=== PATIENT | male | born 1935 | race Caucasian/White ===

== ENCOUNTER → 2016-05-17 | Outpatient (CLI) | payer MEDICARE, BC ==
--- NOTE | 2016-05-17 15:54 | REP ---
LEFT KNEE, FIVE VIEWS: HISTORY: Pain. There is no acute fracture or dislocation. There is narrowing of the joint spaces with associated osteophyte formation. IMPRESSION: Degenerative change as described above. Signed by Paul Huntley MD 05/17/2016 04:07 P
== END ==
LOC: M WUC 14:47
PROVIDERS: ATTEND Nurse Practitioner Family
DX: M25.562 Pain in left knee (principal); M17.12 Unilateral primary osteoarthritis, left knee

== ENCOUNTER → 2016-06-17 | Outpatient (CLI) | payer MEDICARE ==
--- NOTE | 2016-06-19 08:32 | REP ---
MRI LEFT KNEE WITHOUT CONTRAST: 06/17/2016. Comparison: X-ray 05/17/2016. Clinical history: Pain and swelling left knee with degenerative change. Technique: Sagittal PD, T2 STIR and gradient echo images, coronal PD and fat suppressed PD sequences and an axial PD fat suppressed sequence. Findings: Both ACL and PCL were grossly intact without a tear. There is transverse meniscal ligament of Frank anterior to the PCL and ligament of Wrisberg posterior to the PCL. Fluid in the intercondylar notch noted. The medial meniscus shows oblique grade 3 signal posterior horn communicating to the inferior articular surface fairly broadly suggesting degenerative type meniscal tear. There is abnormal signal throughout the anterior and posterior horns of medial meniscus with vertically oriented signal in the anterior horn communicating to the inferior articular surface. I do not see a displaced fragment or loose body in the medial compartment. There is chondromalacia grade 2-3. The medial femoral condyle grade 2 tibial plateau. There is a trace amount of fluid about the medial head of the gastrocnemius in the popliteal fossa. Medial collateral ligamentous complex intact. The medial patellar retinaculum slightly bowed by fluid in bursal recess deep to the medial femoral condyle. No definite tear of that ligament. There is some edema at its inferior insertion of the patella. The lateral meniscus shows horizontal grade 3 signal in the anterior horn and oblique grade 3 signal in the posterior horn representing a complex tear. I do not see loose body or meniscal fragment in the medial aspect of the lateral compartment. The lateral compartment shows grade 2-3 chondromalacia. No bone bruise or fracture of the femoral condyles or tibial plateau. Lateral collateral ligamentous complex and patellar retinaculum grossly intact. Suprapatellar effusion with a medial suprapatellar plica noted. There is chondromalacia grade 2 laterally, grade 1 to 2 medially. The extensor mechanism and patellar quadriceps tendons are intact. Impression: 1. ACL and PCL grossly intact. 2. Complex signal pattern tears in the menisci anterior and posterior horns of the medial and lateral menisci, likely in large part degenerative type tears but abnormal signal communicating to the articular surfaces of both horns of both menisci. No definite loose body or bucket-handle tear. 3. 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 4. Extensor mechanism, collateral ligamentous complexes, patellar retinacula all intact. 5. Popliteus tendon and the proximal tibiofibular articulation intact. Signed by Richard Givens MD 06/19/2016 05:13 P
== END ==
LOC: M RAD 10:09
PROVIDERS: ATTEND Nurse Practitioner Family
DX: M25.562 Pain in left knee (principal); M23.312 Other meniscus derangements, anterior horn of medial meniscus, left knee; M23.322 Other meniscus derangements, posterior horn of medial meniscus, left knee; M17.12 Unilateral primary osteoarthritis, left knee

== ENCOUNTER → 2016-10-05 | Outpatient (CLI) | payer MEDICARE ==
[2016-10-05 13:45] LABS: MEAN CORPUSCULAR HEMOGLOBIN 29.2 pg (27.0-33.0); MEAN CORPUSCULAR HGB CONC 33.5 g/dl (32.0-36.5); MEAN CORPUSCULAR VOLUME 87.4 fl (80.0-96.0); RED CELL DISTRIBUTION WIDTH 13.3 % (11.5-14.5); WHITE BLOOD COUNT 6.2 K/mm3 (4.0-10.0)
[2016-10-05 14:12] LABS: ALT/SGPT 21 U/L (12-78); ANION GAP 2 MEQ/L (8-16); AST/SGOT 14 U/L (15-37); BLOOD UREA NITROGEN 18 MG/DL (7-18); CALCIUM LEVEL 9.2 MG/DL (8.8-10.2); CARBON DIOXIDE LEVEL 35 MEQ/L (21-32); CHLORIDE LEVEL 105 MEQ/L (98-107); CREATININE FOR GFR 0.99 MG/DL (0.70-1.30); GLOMERULAR FILTRATION RATE > 60.0 (>35); GLUCOSE, FASTING 101 MG/DL (83-110); POTASSIUM SERUM 4.4 MEQ/L (3.5-5.1); SODIUM LEVEL 142 MEQ/L (136-145)
[2016-10-05 14:13] LABS: ALBUMIN 3.5 GM/DL (3.2-5.2); ALBUMIN/GLOBULIN RATIO 1.09 (1.00-1.93); ALKALINE PHOSPHATASE 57 U/L (45-117); BILIRUBIN,TOTAL 0.8 MG/DL (0.2-1.0); CHOLESTEROL LEVEL 134 MG/DL (<200); TOTAL PROTEIN 6.7 GM/DL (6.4-8.2); TRIGLYCERIDES LEVEL 67 MG/DL (<150)
== END ==
LOC: M WUC 09:33
PROVIDERS: ATTEND Nurse Practitioner Family
DX: I10 Essential (primary) hypertension (principal); E78.00 Pure hypercholesterolemia, unspecified

== ENCOUNTER → 2017-03-29 | Outpatient (CLI) | payer MEDICARE ==
[2017-03-29 12:58] LABS: MEAN CORPUSCULAR HEMOGLOBIN 28.5 pg (27.0-33.0); MEAN CORPUSCULAR HGB CONC 33.1 g/dl (32.0-36.5); MEAN CORPUSCULAR VOLUME 86.2 fl (80.0-96.0); PLATELET COUNT, AUTOMATED 161 10^3/uL (150-450); RED CELL DISTRIBUTION WIDTH 13.5 % (11.5-14.5); WHITE BLOOD COUNT 6.9 10^3/uL (4.0-10.0)
[2017-03-29 13:29] LABS: ALBUMIN 3.4 GM/DL (3.2-5.2); ALBUMIN/GLOBULIN RATIO 0.94 (1.00-1.93); ALKALINE PHOSPHATASE 62 U/L (45-117); ALT/SGPT 22 U/L (12-78); ANION GAP 5 MEQ/L (8-16); AST/SGOT 11 U/L (7-37); BILIRUBIN,TOTAL 0.7 MG/DL (0.2-1.0); BLOOD UREA NITROGEN 21 MG/DL (7-18); CALCIUM LEVEL 9.1 MG/DL (8.8-10.2); CARBON DIOXIDE LEVEL 32 MEQ/L (21-32); CHLORIDE LEVEL 105 MEQ/L (98-107); CHOLESTEROL LEVEL 151 MG/DL (<200); CREATININE FOR GFR 0.93 MG/DL (0.70-1.30); GLOMERULAR FILTRATION RATE > 60.0 (>35); GLUCOSE, FASTING 101 MG/DL (83-110); POTASSIUM SERUM 4.1 MEQ/L (3.5-5.1); SODIUM LEVEL 142 MEQ/L (136-145); TRIGLYCERIDES LEVEL 67 MG/DL (<150)
== END ==
LOC: M WUC 09:45
PROVIDERS: ATTEND Nurse Practitioner Adult Health
DX: I10 Essential (primary) hypertension (principal); E78.5 Hyperlipidemia, unspecified; D53.9 Nutritional anemia, unspecified; Z93.3 Colostomy status; Z79.899 Other long term (current) drug therapy

== ENCOUNTER → 2017-10-22 | Outpatient (CLI) | payer MEDICARE | LOC: M WUC 12:31 | DX: B99.9 Unspecified infectious disease (principal); Z98.890 Other specified postprocedural states | CPT/HCPCS: 74018 ==

== ENCOUNTER → 2018-06-18 | Outpatient (CLI) | payer MEDICARE ==
[2018-06-18 13:08] LABS: BASO % 0.6 % (0.0-1.0); EOS # 0.2 10^3/uL (0.0-0.50); EOS % 3.1 % (0.0-3.0); HEMATOCRIT 42.4 % (42.0-52.0); HEMOGLOBIN 13.8 g/dl (13.5-17.5); LYMPH % 16.2 % (24.0-44.0); MEAN CORPUSCULAR HEMOGLOBIN 28.3 pg (27.0-33.0); MEAN CORPUSCULAR HGB CONC 32.5 g/dl (32.0-36.5); MEAN CORPUSCULAR VOLUME 86.9 fl (80.0-96.0); MONO # 0.4 10^3/uL (0.0-0.8); MONO % 6.7 % (0.0-5.0); NEUTROPHILS # 4.7 10^3/uL (1.8-7.7); NEUTROPHILS % 73.1 % (36.0-66.0); PLATELET COUNT, AUTOMATED 174 10^3/uL (150-450); RED BLOOD COUNT 4.88 10^6/uL (4.30-6.10); WHITE BLOOD COUNT 6.4 10^3/uL (4.0-10.0)
[2018-06-18 14:02] LABS: HEMOGLOBIN A1c 6.5 %
[2018-06-18 14:24] LABS: ALBUMIN 3.5 GM/DL (3.2-5.2); ALT/SGPT 19 U/L (12-78); BILIRUBIN,TOTAL 0.9 MG/DL (0.2-1.0); BLOOD UREA NITROGEN 20 MG/DL (7-18); CALCIUM LEVEL 9.2 MG/DL (8.8-10.2); CARBON DIOXIDE LEVEL 30 MEQ/L (21-32); CHLORIDE LEVEL 102 MEQ/L (98-107); CHOLESTEROL LEVEL 152 MG/DL (<200); CREATININE FOR GFR 0.97 MG/DL (0.70-1.30); FREE T4 1.08 NG/DL (0.76-1.46); GLOMERULAR FILTRATION RATE > 60.0 (>35); GLUCOSE, FASTING 111 MG/DL (70-100); HDL CHOLESTEROL 51 MG/DL (>40); LDL CHOLESTEROL 85 MG/DL (<100); NON-HDL-C 101 MG/DL; POTASSIUM SERUM 4.2 MEQ/L (3.5-5.1); SODIUM LEVEL 140 MEQ/L (136-145); TOTAL 25(OH) VITAMIN D 25.4 NG/ML (30.0-100.0); TOTAL PROTEIN 7.2 GM/DL (6.4-8.2); TRIGLYCERIDES LEVEL 79 MG/DL (<150)
== END ==
LOC: M WUC 09:23
PROVIDERS: ATTEND Physician Assistant Medical
DX: R53.83 Other fatigue (principal); E78.2 Mixed hyperlipidemia; I10 Essential (primary) hypertension; E55.9 Vitamin D deficiency, unspecified; E11.9 Type 2 diabetes mellitus without complications

== ENCOUNTER 2019-07-29 11:31 | Inpatient (IN) | payer MEDICARE ==
[~2019-07-29] VITALS: Ht 188 cm; Wt 112.7 kg
[2019-07-29] MEDS ORDERED: LOSA100T50 PO (11:41)
[2019-07-29] MEDS ORDERED: CENTRUM VITAMIN (11:41)
[2019-07-29] MEDS ORDERED: ONDANSETRON 4MG/2ML VIAL (J2405) IV ONE (12:15)
[2019-07-29] MEDS ORDERED: NS 1,000 ML IV ONE (12:15)
[2019-07-29] MEDS ORDERED: MORPHINE 2 MG/ML 1ML VIAL (J2270) IV PRN (12:15)
[2019-07-29 12:43] LABS: BASO % 0.2 % (0.0-1.0); HEMATOCRIT 53.1 % (42.0-52.0); HEMOGLOBIN 16.9 g/dl (13.5-17.5); LYMPH # 0.3 10^3/uL (1.5-5.0); LYMPH % 2.4 % (24.0-44.0); MEAN CORPUSCULAR HEMOGLOBIN 28.2 pg (27.0-33.0); MEAN CORPUSCULAR HGB CONC 31.8 g/dl (32.0-36.5); MEAN CORPUSCULAR VOLUME 88.5 fl (80.0-96.0); MONO # 0.6 10^3/uL (0.0-0.8); MONO % 4.1 % (0.0-5.0); NEUTROPHILS # 12.4 10^3/uL (1.5-8.5); NEUTROPHILS % 92.7 % (36.0-66.0); PLATELET COUNT, AUTOMATED 200 10^3/uL (150-450); WHITE BLOOD COUNT 13.4 10^3/uL (4.0-10.0)
[2019-07-29 12:48] LABS: INR 1.21
[2019-07-29 12:49] LABS: ALBUMIN 3.7 GM/DL (3.2-5.2); ALT/SGPT 20 U/L (12-78); BILIRUBIN,DIRECT 0.3 MG/DL (0.0-0.2); CK-MB VALUE MASS 1.3 NG/ML (<3.6); CPK CREATINE PHOSPHOKINASE 44 U/L (39-308); LIPASE 146 U/L (73-393); MB/CK RELATIVE INDEX 2.95 (< OR =4); PARTIAL THROMBOPLASTIN TIME 25.5 SECONDS (25.0-38.4); TOTAL PROTEIN 7.9 GM/DL (6.4-8.2); TROPONIN I < 0.02 NG/ML (< 0.10)
[2019-07-29] MEDS ORDERED: ISOVUE-370 76% 100ML VIAL (Q9967) As Ordered ONE (13:00)
--- NOTE | 2019-07-29 14:35 | REP ---
REASON FOR EXAM: Acute abdominal pain. COMPARISON CT: None. CONTRAST: 100 mL Isovue 370. The lung bases are clear. The liver and spleen are within normal limits. Although according to the patient's history sheet filled out by the biomedical engineering technologist, the patient is not status post cholecystectomy, however, the gallbladder is not present or it is markedly contracted. There is marked pancreatic fatty infiltration. The right kidney and right adrenal gland are unremarkable. There is left adrenal gland thickening. In the interpolar region of the left kidney, there is a round 3.9 cm sized low density structure which has water density Hounsfield unit readings and shows no evidence of septations or enhancement. The abdominal aorta and para-aortic regions are within normal limits. There are multiple dilated and fluid-filled small bowel loops in the abdomen, particularly in the right abdomen and right upper quadrant. The small bowel loops seen in the right upper quadrant also have thickened hauser, which are enhancing and are seen in conjunction with a small amount of fluid trapped in their small bowel mesenteric leaves. There is no evidence of complete intestinal obstruction at this time. The patient does have a left-sided colostomy. There is gastric distention with fluid-filling the stomach and fluid throughout the duodenum with the exception of the distal portion of the sweep. There is no free air in the abdomen. CT PELVIS: The small bowel loops deep within the pelvis are nondilated but are fluid-filled. There is no evidence of free fluid or air in the pelvis. There is no evidence of pelvic adenopathy. Bone window technique throughout the examination shows chronic spinal, hip, and sacroiliac joint degenerative changes. IMPRESSION: 1. Findings involving the small bowel, as described above, suggest acute enteritis. This is seen with a suspected small bowel ileus. There is no definite evidence of complete obstruction at this time, however, followup is recommended. 2. Left renal cyst. 3. Diffuse fatty infiltration of the pancreas suggesting diabetes mellitus. This needs clinical correlation . 4. Other findings as described above. Electronically Signed by Homer Huffman DO 07/29/2019 03:10 P
[2019-07-29] MEDS ORDERED: CETACAINE SPRAY 5GM TOP ONE (15:00)
[2019-07-29] MEDS ORDERED: MORPHINE 4 MG/ML 1ML VIAL/SYRINGE (J2270) IV PRN (16:00)
--- NOTE | 2019-07-29 16:02 | HPEPDOC ---
General Date of Admission Date of Service: Jul 29, 2019 Primary Care Physician: RALPH MAZARIEGOS Attending Physician: A Chief Complaint The patient is a 84-year-old male admitted with a reason for visit of Abdominal Pain. Source: Patient Exam Limitations: No limitations Timing/Duration: Day(s) (. 4-5 days) Severity: Moderate Associated Symptoms: Other (, anorexia) History of Present Illness This is a 84 years old white male with past medical history of colorectal carcinoma, status post colostomy, also history of hypertension, was in usual state of health since he started feeling pain in his epigastric area along with nausea and vomiting since 5 days and today when he went to see his provider. He felt some lumps and was unable to rule out blockage and incentive to ED for further workup. Patient also complaining of loss of appetite since last 4-5 days. Patient denies chest pain, shortness of breath, etc. Home Medications Miscellaneous Medications Losartan Potassium (Losartan Potassium) 100 Mg Tablet, (Reported) [Centrum Vitamin] , (Reported) Allergies Coded Allergies: No Known Allergies (Unverified , 07/29/19) Past Medical History Medical History Colorectal carcinoma, hypertension Surgical History Colostomy status post hand surgery Social History * Smoker: non-smoker Alcohol: Denies Drugs: denies A-FIB/CHADSVASC A-FIB History Current/History of A-Fib/PAF?: No Review of Systems Constitutional: Reports: Weakness, Other (and her exam) Eyes: Denies: Pain, Vision change, Conjunctivae inflammation, Eyelid inflammation, Redness, Other ENT: Denies: Head Aches, Ear Pain, Dysphagia, Sinus Congestion, Post Nasal Drip, Sore Throat, Epistaxis, Other Symptoms Skin: Denies: Rash, Lesions, Jaundice, Bruising, Itching, Dry, Breakdown, Nail Changes, Other Cardiovascular: Denies: Chest Pain, Palpitations, Orthopnea, Paroxysmal Noc. Dyspnea, Edema, Lt Headedness, Other Symptoms Gastrointestinal: Reports: Abdominal Pain Genitourinary: Denies: Dysuria, Frequency, Incontinence, Hematuria, Retention, Other Symptoms Hematologic: Denies: Bruising, Bleeding Excessively, Petecchia, Purpura, Enlarged Lymph Nodes, Other Hematologic Endocrine: Denies: Polydipsia, Polyphagia, Polyuria, Heat Intolerance, Cold Intolerance, Other Endocrine Sx Musculoskeletal: Denies: Neck Pain, Back Pain, Shoulder Pain, Arm Pain, Hand Pain, Leg Pain, Foot Pain, Joint Pain, Muscle Pain, Spasms, Other Symptoms Neurological: Denies: Weakness, Numbness, Incoordination, Change in speech, C onfusion, Seizures, Other Symptoms Psych: Denies: Mood Normal, Anxiety, Depression, Memory Issues, Thoughts of Self Harm, Anger, Thoughts of Harming Other, Other Psych Physical Examination General Exam: Positive: Alert, Cooperative Eye Exam: Positive: PERRLA, Conjunctiva & lids normal ENT Exam: Positive: Atraumatic, Mucous membr. moist/pink Neck Exam: Positive: Supple Chest Exam: Positive: Clear to auscultation, Normal air movement Heart Exam: Positive: Rate Normal, Normal S1, Normal S2 Extremity Exam: Positive: Normal pulses Skin Exam: Positive: Nl turgor and temperature Neuro Exam: Positive: Strength at 5/5 X4 ext, Cranial Nerves 3-12 NL Psych Exam: Positive: Mental status NL, Mood NL Vital Signs Vital Signs Date Time Temp Pulse Resp B/P (MAP) Pulse Ox O2 Delivery O2 Flow Rate FiO2 07/29/19 13:35 19 07/29/19 11:53 07/29/19 11:32 96.2 101 96 Room Air Laboratory Data Labs 24H Laboratory Tests 2 07/29/19 12:04: Immature Granulocyte % (Auto) 0.6, Neutrophils (%) (Auto) 92.7H, Lymphocytes (%) (Auto) 2.4L, Monocytes (%) (Auto) 4.1, Eosinophils (%) (Auto) 0.0, Basophils (%) (Auto) 0.2, Neutrophils # (Auto) 12.4H, Lymphocytes # (Auto) 0.3L, Monocytes # (Auto) 0.6, Eosinophils # (Auto) 0.0, Basophils # (Auto) 0.0, Nucleated Red Blood Cells % (auto) 0.0, Prothrombin Time 15.0H, Prothromb Time International Ratio 1.21, Activated Partial Thromboplast Time 25.5, Total Bilirubin 1.0, Direct Bilirubin 0.3H, Aspartate Amino Transf (AST/SGOT) 16, Alanine Aminotransferase (ALT/SGPT) 20, Alkaline Phosphatase 78, Total Creatine Kinase 44, Creatine Kinase MB 1.3, Creatine Kinase MB Relative Index 2.95, Troponin I < 0.02, Total Protein 7.9, Albumin 3.7, Albumin/Globulin Ratio 0.88L, Lipase 146 07/29/19 12:34: Lactic Acid Level 2.7*H 07/29/19 12:57: POC Glucose (Misc Panel) 164H, POC Sodium (Misc Panel) 143, POC Potassium (Misc Panel) 3.6, POC Chloride (Misc Panel) 99, POC Total CO2 (Misc Panel) 32.0H, POC Blood Urea Nitrogen (Misc Panel 37H, POC Ionized Calcium (Misc Panel) 4.7, POC Creatinine (Misc Panel) 1.3, POC Hematocrit (Misc Panel) 54.0H CBC/BMP Laboratory Tests 07/29/19 12:04 Microbiology Microbiology 07/29/19 Blood Culture, Received Pending 07/29/19 Blood Culture, Received Pending Problems (1) Abdominal pain Status: Acute Problem Text: 84 years old white male with past medical history of colorectal carcinoma, status post colostomy complaining of epigastric pains last 4-5 days along with vomiting and unable to eat or tolerate anything orally. Patient was seen by his provider who felt the lump on his one side of abdomen and sent to the ER. Suspecting a blockage. Patient had abdominal CT done which showed acute enteritis. Suspect small bowel ileus. Left renal cyst and diffuse fatty infiltration of pancreatitis Patient. WBC count 13.4, hemoglobin 16.9, hematocrit 53.1, platelets 200. Lactic acid 2.7, lipase 146. Electrolytes are within normal range. BUN 37, creatinine 1.3 , Abdominal pain, most likely secondary to possible small bowel obstruction versus ileus, small bowel enteritis, Admit patient to MedSurg floor Half-normal saline at 70 mL per hour Protonix 40 mg IV every 12 hours Morphine sulfate 4 mg IV every 4-6 hours when necessary for pain Zofran 4 mg IV every 4 hours when necessary for nausea, vomiting Flagyl 500 mg IV every 8 hours Cipro 200 mg IV every 12 hours NG tube was inserted in ED and will maintain with gravity suction Nothing by mouth except ice chips Activity as tolerated DVT prophylaxis with bilateral SCDs Surgical consult with was called from ED and will see patient today Hold all by mouth meds (2) Enteritis Status: Acute Problem Specific Plan: Consult Specialist Problem Text: As above (3) Colorectal carcinoma Status: Chronic Problem Text: History of colorectal carcinoma, status post colostomy Further recommendation as per surgery (4) HTN (hypertension) Status: Chronic Problem Text: Hold by mouth meds Le[place]itt start IV antihypertensive if needed Plan / VTE VTE Prophylaxis Ordered?: Yes SUSAN HAYS MD Jul 29, 2019 16:02
[2019-07-29] MEDS: metroNIDAZOLE 500 MG in IV 1 EA IV SCH (16:13)
[2019-07-29] MEDS: NS 0.45% 1,000 ML IV SCH (16:13)
[2019-07-29] MEDS ORDERED: CENT1TAB2 PO (16:32)
[2019-07-29 17:05] VITALS: BP 140/77
--- NOTE | 2019-07-29 17:47 | CR.PDOC ---
General Surgery Consultation Date of Consultation 07/29/19 History and Physical CONSULT REPORT FOR: hospitalist service REASON FOR CONSULTATION: abdominal pain, possible bowel obstruction, parastomal hernia HISTORY OF PRESENT ILLNESS: Patient is an 84 M with a long standing colostomy following rectal cancer surgery (1997). He tells me he had the full treatment which usually includes radiation and chemotherapy. We have no record of the e xtent of his treatment. He reports he has never had a problem with his colostomy up until a week ago. Last week he was having some loose stools from the ostomy, this stopped roughly five days ago, he started having some epigastric discomfort then and reports one episode of vomiting. His ostomy output also started to decrease. He reports no output for about 3 days now. He started feeling nauseated. He went to his primary care provider who noted what most likely was a parastomal hernia and he was instructed to go to the emergency room. He denies fevers, chills, sick contacts. He did not notice the hernia himself. His discomfort is more on the right lower quadrant and epigastric area. In the ER, he was evaluated and imaging was suggestive of enteritis. The parastomal hernia was also visualized. I was then asked to consult on the patient. PAST MEDICAL HISTORY: 1. rectal cancer. s/p what looks like APR chemoradiation 2. hypertension. PAST SURGICAL HISTORY: INCLUDES: 1. Patient looks to have had an abdominoperineal resection for the rectal cancer 2. Hand surgery 3. Bilateral cataract surgery ALLERGIES: Please see below. HOME MEDICATIONS: Please see below. REVIEW OF SYSTEMS: GENERAL: No fevers chills, abnormal ongoing weight loss reported. HEENT: Patient reports hard of hearing. NECK: Denies any neck pain CARDIOVASCULAR: Denies chest pain and palpitations. MUSCULOSKELETAL: Denies arthralgias, back pain and thrombophlebitis. SKIN: Denies rash. NEUROLOGIC: Denies headache, stroke and transient ischemic attack. PSYCHIATRIC: Denies anxiety and depression. HEMATOLOGY/ONCOLOGY: Denies bleeding or clotting disorder. HEART: Denies any chest pains, palpitations, paroxysmal dyspnea, orthopnea. PULMONARY: Denies chronic cough, dyspnea and wheezing. GASTROINTESTINAL: As mentioned in HPI this is significant history for rectal cancer treated with surgery, chemoradiation. Last reported colonoscopy was several years ago. GENITOURINARY: Denies dysuria, frequency, hematuria and nocturia. ENDOCRINE: Denies polydipsia, polyphagia, polyuria, heat or cold intolerance. INFECTIOUS: Denies any recent upper respiratory tract infection, UTI, need for use of antibiotics. NUTRITION: Reports associated poor appetite from the abdominal distention. PHYSICAL EXAMINATION: VITALS SIGNS: Please see below. GENERAL APPEARANCE: Patient seen laying in bed reports he is feeling better after the nasogastric tube was been placed. SKIN: Warm and dry. HEENT: He has a nasogastric tube in place over the right nostril and this looks to be draining thick yellowish material reportedly drained 800 mL's in the emergency room and placement. NECK: Supple, no thyromegaly. No obvious jugular venous distention. LUNGS: Clear to auscultation bilaterally. No wheezing appreciated. HEART: No chest wall abnormalities. Regular rate and rhythm with no murmurs appreciated. ABDOMEN: Abdomen is mildly distended, tympanitic to percussion, quiet abdomen. LLQ ostomy without any output. The abdominal wall is protruding out more around the ostomy consistent with a parastomal hernia. The hernia site seems soft and seems to be partially reducible. He is somewhat tender around the ostomy with manipulation but also has some tenderness on deep palpation at the RLQ, periumbilical area. EXTREMITIES: Extremities have no deformities. No edema identified RUE lipoma noted ANCILLARIES: . LABORATORY DATA: Please see below. IMAGING STUDIES: CT abdomen and pelvis 1. Findings involving the small bowel, as described above, suggest acute enteritis. This is seen with a suspected small bowel ileus. There is no defini te evidence of complete obstruction at this time, however, followup is recommended. 2. Left renal cyst. 3. Diffuse fatty infiltration of the pancreas suggesting diabetes mellitus. This needs clinical correlation . 4. Other findings as described above. IMPRESSION AND PLAN: suspicious for bowel obstruction parastomal hernia The hernia itself does not seem to be the obstructing point as the bowels prior to going in the hernia is already normal to decompressed. I could not identify a n exact transition point at this time. This certainly is suspicious more of a mechanical bowel obstruction than enteritis as what the radiologist read on the CT scan was. He has an NGT in place and this is draining some thick enteric fluid. I will closely observe his course for now and see if he will resolve this obstruction with just the decompression and IVF hydration for support. If not resolved within 48 hrs, would do an SBFT to look for obstructing point and if there is would recommend surgical exploration . For now continue with conservative management. Vital Signs Vital Signs Date Time Temp Pulse Resp B/P (MAP) Pulse Ox O2 Delivery O2 Flow Rate FiO2 07/29/19 17:05 97.9 119 18 140/77 (98) 96 Room Air Laboratory Data Labs 24H Laboratory Tests 2 07/29/19 12:04: Immature Granulocyte % (Auto) 0.6, Neutrophils (%) (Auto) 92.7H, Lymphocytes (%) (Auto) 2.4L, Monocytes (%) (Auto) 4.1, Eosinophils (%) (Auto) 0.0, Basophils (%) (Auto) 0.2, Neutrophils # (Auto) 12.4H, Lymphocytes # (Auto) 0.3L, Monocytes # (Auto) 0.6, Eosinophils # (Auto) 0.0, Basophils # (Auto) 0.0, Nucleated Red Blood Cells % (auto) 0.0, Prothrombin Time 15.0H, Prothromb Time International Ratio 1.21, Activated Partial Thromboplast Time 25.5, Total Bilirubin 1.0, Direct Bilirubin 0.3H, Aspartate Amino Transf (AST/SGOT) 16, Alanine Aminotransferase (ALT/SGPT) 20, Alkaline Phosphatase 78, Total Creatine Kinase 44, Creatine Kinase MB 1.3, Creatine Kinase MB Relative Index 2.95, Troponin I < 0.02, Total Protein 7.9, Albumin 3.7, Albumin/Globulin Ratio 0.88L, Lipase 146 07/29/19 12:34: Lactic Acid Level 2.7*H 07/29/19 12:57: POC Glucose (Misc Panel) 164H, POC Sodium (Misc Panel) 143, POC Potassium (Misc Panel) 3.6, POC Chloride (Misc Panel) 99, POC Total CO2 (Misc Panel) 32.0H, POC Blood Urea Nitrogen (Misc Panel 37H, POC Ionized Calcium (Misc Panel) 4.7, POC Creatinine (Misc Panel) 1.3, POC Hematocrit (Misc Panel) 54.0H 07/29/19 17:17: CBC/BMP Laboratory Tests 07/29/19 12:04 Microbiology Microbiology 07/29/19 Blood Culture, Received Pending 07/29/19 Blood Culture, Received Pending Home Medications Scheduled Losartan Potassium (Losartan Potassium) 100 Mg Tablet, 100 MG PO DAILY, (Reported) Multivit-Mins/Iron/Folic/Lycop (Centrum Men's Tablet) 1 Each Tablet, 1 TAB PO DAILY, (Reported) Allergies Coded Allergies: No Known Allergies (Unverified , 07/29/19) ROSA LEON MD Jul 29, 2019 17:47
[2019-07-29] MEDS: CIPROFLOXACIN 200 MG in IV 1 EA IV SCH (18:33)
[2019-07-29 22:00] VITALS: BP 137/76
[2019-07-29] MEDS ORDERED: ACETAMINOPHEN TAB 650MG DOSE (2X325MG) NG PRN (22:00)
[2019-07-30] MEDS: metroNIDAZOLE 500 MG in IV 1 EA IV SCH ×3 (00:20→15:30)
--- NOTE | 2019-07-30 01:08 | ECGEPIP ---
[facility] - ED Test Date: 2019-07-29 Pat Name: SIENA MCNAIR Department: Room: 01[facility] Gender: Male Instrumentation Technician: Da ALDRIDGE : [id number] Requested By: SYED Jeff Order Number: [id number] Reading MD: Marcos Olson Measurements Intervals Rector Rate: 110 P: 60 NV: 159 QRS: -1 QRSD: 89 T: 72 QT: 324 QTc: 440 Interpretive Statements SINUS TACHYCARDIA WITH OCCASIONAL VENTRICULAR PREMATURE COMPLEXES WITH OCCASIONAL S SUPRAVENTRICULAR PREMATURE COMPLEXES NO PRIORS FOR COMPARISON Electronically Signed on 07-30-2019 1:08:29 EDT by Marcos Olson
[2019-07-30] MEDS: CIPROFLOXACIN 200 MG in IV 1 EA IV SCH ×2 (05:06→17:19)
[2019-07-30] MEDS: NS 0.45% 1,000 ML IV SCH ×2 (05:06→15:30)
[2019-07-30 05:48] LABS: HEMATOCRIT 52.1 % (42.0-52.0); HEMOGLOBIN 16.5 g/dl (13.5-17.5); MEAN CORPUSCULAR HEMOGLOBIN 27.8 pg (27.0-33.0); MEAN CORPUSCULAR HGB CONC 31.7 g/dl (32.0-36.5); MEAN CORPUSCULAR VOLUME 87.9 fl (80.0-96.0); PLATELET COUNT, AUTOMATED 180 10^3/uL (150-450); RED BLOOD COUNT 5.93 10^6/uL (4.30-6.10); WHITE BLOOD COUNT 14.4 10^3/uL (4.0-10.0)
[2019-07-30 06:00] VITALS: BP 104/68
[2019-07-30 06:20] LABS: ALBUMIN 2.7 GM/DL (3.2-5.2); CALCIUM LEVEL 9.1 MG/DL (8.8-10.2); CREATININE FOR GFR 2.5 MG/DL (0.70-1.30); GLOMERULAR FILTRATION RATE 26.2 (>35); TOTAL PROTEIN 7.2 GM/DL (6.4-8.2)
[2019-07-30 06:26] LABS: HEMOGLOBIN A1c 6.2 %
--- NOTE | 2019-07-30 09:41 | IPNPDOC ---
Subjective General Date/Time Seen The patient was seen on 07/30/19 at 08:26. Subject Chief Complaint/History The patient is a 84-year-old male admitted with a reason for visit of Abdominal Pain. Patient reports he feels mildly better. He drained 800 mLs from his nasogastric tube overnight. He is pointing to his right upper quadrant area where he hurts today. He feels better over the right lower quadrant and periumbilical area and likewise the parastomal area. He still has no output from his colostomy. Current Medications Current Medications Current Medications Medications (Trade) Dose Ordered Sig/Chel Route PRN Reason Start Time Stop Time Status Last Admin Dose Admin Acetaminophen (Tylenol Tab) 650 mg Q6HP PRN NG PAIN / FEVER 07/29/19 22:00 07/29/19 22:01 Ciprofloxacin 200 mg/IV Miscellaneous Supplies 100 ml @ 100 mls/hr Q12H IV 07/29/19 17:00 07/30/19 05:06 Home Med (Med Rec Complete!) ASDIRECTED XX 07/29/19 16:45 07/29/19 16:35 DC Metronidazole 500 mg/IV Miscellaneous Supplies 100 ml @ 100 mls/hr Q8H IV 07/29/19 16:00 07/30/19 00:20 Morphine Sulfate (Morphine Sulfate Inj) 2 mg Q30M PRN IV MODERATE PAIN (PS 5-7) 07/29/19 12:15 07/29/19 13:25 Morphine Sulfate (Morphine Sulfate Inj) 4 mg Q4HP PRN IV SEVERE PAIN (PS 8-10) 07/29/19 16:00 Ondansetron HCl (ZOFRAN INJection) 4 mg Q4HP PRN IV NAUSEA OR VOMITING 07/29/19 16:00 Sodium Chloride 1,000 ml @ 100 mls/hr Q10H IV 07/29/19 16:00 07/30/19 05:06 Allergies Coded Allergies: No Known Allergies (Unverified , 07/29/19) Objective Physical Examination Examination GENERAL APPEARANCE: Patient looks comfortable. SKIN: Warm and dry. HEENT: Nasogastric tube in place, noted to be working. The character of drainage is now mostly thin bilious fluid. NECK: Supple, no thyromegaly. No obvious jugular venous distention. LUNGS: Clear to auscultation bilaterally. No wheezing appreciated. HEART: No chest wall abnormalities. Regular rate and rhythm with no murmurs appreciated. ABDOMEN: Abdomen is appears less distended today, softer. Hypoactive bowel sounds. He has some mild tenderness on palpation over the right upper quadrant area slightly at the left upper quadrant area. He no longer has tenderness over the right lower quadrant, periumbilical and parastomal area. His stoma is healthy but no output either air or stool in the colostomy bag, soft. EXTREMITIES: No extremity edema. Vital Signs Vital Signs Date Time Temp Pulse Resp B/P (MAP) Pulse Ox O2 Delivery O2 Flow Rate FiO2 07/30/19 06:00 99.6 108 20 104/68 (80) 91 Room Air I&Os I&O- Last 24 Hours up to 6 AM 07/30/19 06:00 Intake Total 2310 ml Output Total 1180 ml Balance 1130 ml 900 mLs drained from NGT overnight Laboratory Data Labs 24H Laboratory Tests 2 07/29/19 12:04: Immature Granulocyte % (Auto) 0.6, Neutrophils (%) (Auto) 92.7H, Lymphocytes (%) (Auto) 2.4L, Monocytes (%) (Auto) 4.1, Eosinophils (%) (Auto) 0.0, Basophils (%) (Auto) 0.2, Neutrophils # (Auto) 12.4H, Lymphocytes # (Auto) 0.3L, Monocytes # (Auto) 0.6, Eosinophils # (Auto) 0.0, Basophils # (Auto) 0.0, Nucleated Red Blood Cells % (auto) 0.0, Prothrombin Time 15.0H, Prothromb Time International Ratio 1.21, Activated Partial Thromboplast Time 25.5, Total Bilirubin 1.0, Di rect Bilirubin 0.3H, Aspartate Amino Transf (AST/SGOT) 16, Alanine Aminotransferase (ALT/SGPT) 20, Alkaline Phosphatase 78, Total Creatine Kinase 44, Creatine Kinase MB 1.3, Creatine Kinase MB Relative Index 2.95, Troponin I < 0.02, Total Protein 7.9, Albumin 3.7, Albumin/Globulin Ratio 0.88L, Lipase 146 07/29/19 12:34: Lactic Acid Level 2.7*H 07/29/19 12:57: POC Glucose (Misc Panel) 164H, POC Sodium (Misc Panel) 143, POC Potassium (Misc Panel) 3.6, POC Chloride (Misc Panel) 99, POC Total CO2 (Misc Panel) 32.0H, POC Blood Urea Nitrogen (Misc Panel 37H, POC Ionized Calcium (Misc Panel) 4.7, POC Creatinine (Misc Panel) 1.3, POC Hematocrit (Misc Panel) 54.0H 07/29/19 17:17: Lactic Acid Followup at 4 Hours 2.9*H 07/30/19 05:26: Nucleated Red Blood Cells % (auto) 0.0, Anion Gap 6L, Glomerular Filtration Rate 26.2L, Estimated Mean Plasma Glucose 131H, Hemoglobin A1c 6.2, Lactic Acid Level 1.8, Calcium Level 9.1, Total Bilirubin 1.0, Aspartate Amino Transf (AST/SGOT) 10, Alanine Aminotransferase (ALT/SGPT) 18, Alkaline Phosphatase 59, Total Protein 7.2, Albumin 2.7#L, Albumin/Globulin Ratio 0.60L CBC/BMP Laboratory Tests 07/29/19 12:04 07/30/19 05:26 Microbiology Microbiology 07/29/19 Blood Culture, Received Pending 07/29/19 Blood Culture, Received Pending Impression h/o rectal cancer s/p resection and colostomy parastomal hernia bowel obstruction He continues to some mild leukocytosis as well as a febrile temperature last night. He has been started on Cipro and metronidazole. He still does not have any output on his colostomy despite him being decompressed now with a nasogastric tube suction. I still feel this is an obstruction and others of enteritis. I like to get a small bowel follow-through today to further evaluate the bowels look for areas of obstruction. Looking back on the CT done yesterday I'm suspecting the obstructing point is somewhat near the right upper quadrant area where he hurts. I will await the results of the small bowel follow-through. Continue present management including nasogastric tube decompression Plan / VTE VTE Prophylaxis Ordered?: Yes ROSA LEON MD Jul 30, 2019 08:27
[2019-07-30] MEDS ORDERED: ISOVUE-370 76% 100ML VIAL (Q9967) As Ordered ONE (09:56)
[2019-07-30] MEDS ORDERED: ISOVUE-300 61% 50ML VIAL (Q9967) As Ordered ONE (09:57)
--- NOTE | 2019-07-30 09:59 | IPNPDOC ---
Subjective Date Seen The patient was seen on 07/30/19. Subjective Chief Complaint/HPI Patient still has abdominal pain but has slightly decreased NG tube in place General: Denies: ROS Unobtainable, Chills, Night Sweats, Fatigue, Malaise, Normal Appetite, Other Symptoms Constitutional: Denies: Chills, Fever, Malaise, Night Sweats, Weakness, Fatigue, Weight Loss, Lethargy, Other Skin: Denies: Rash, Lesions, Jaundice, Bruising, Itching, Dry, Breakdown, Nail Changes, Other Pulmonary: Denies: Dyspnea, Cough, Pleuritic Chest Pain, Other Symptoms Cardiovascular: Denies: Chest Pain, Palpitations, Orthopnea, Paroxysmal Noc. Dyspnea, Edema, Lt Headedness, Other Symptoms Gastrointestinal: Denies: Nausea, Vomiting, Abdominal Pain, Diarrhea, Constipation, Melena, Hematochezia, Other Symptoms Musculoskeletal: Denies: Neck Pain, Back Pain, Shoulder Pain, Arm Pain, Hand Pain, Leg Pain, Foot Pain, Joint Pain, Muscle Pain, Spasms, Other Symptoms Neurological: Denies: Weakness, Numbness, Incoordination, Change in speech, Confusion, Seizures, Other Symptoms Objective Physical Examination General Exam: Positive: Alert, Cooperative, No Acute Distress, Mild Distress, Moderate Distress, Severe Distress, Other Chest Exam: Positive: Clear to auscultation, Normal air movement Heart Exam: Positive: Rate Normal, Normal S1, Normal S2 Abdomen Exam: Positive: BS Hypoactive, Tenderness (positive tenderness all over the abdomen) Extremity Exam: Positive: Normal pulses Skin Exam: Positive: Nl turgor and temperature Neuro Exam: Positive: Strength at 5/5 X4 ext, Cranial Nerves 3-12 NL Psych Exam: Positive: Mental status NL, Mood NL, Oriented x 3 Assessment /Plan Problems (1) Small bowel obstruction Status: Acute Problem Text: Discussed with Dr. Swanson Patient most likely has a small bowel obstruction . He is ordered small bowel follow-up series to determine transitional point Patient is being decompressed with NG tube possibly will need the surgical intervention if medically his SBO doesn't clear up Patient also was diagnosed with the small bowel enteritis by CAT scan, but does not agree with the findings Will continue IV antibiotics. In the meantime Repeat WBC count is 14.4, electrolytes are normal with BUN of 58, creatinine 2.5 Hemoglobin C is a 6.2, possible borderline diabetes mellitus, will start fingerstick blood sugar with the coverage Once patient is a ready to be discharged, then he will be placed on diabetic diet and follow with PCP for further management of his glucose tolerance Further recommendation as per surgery (2) Colorectal carcinoma Status: Chronic Problem Text: History of colorectal carcinoma in the past Observation (3) HTN (hypertension) Status: Chronic Problem Text: By mouth meds on hold secondary to his by mouth Will start IV meds if needed, but his blood pressure is under well control at present time Plan/VTE VTE Prophylaxis Ordered?: Yes VS, I&O, 24H, Fishbone Vital Signs/I&O Vital Signs Date Time Temp Pulse Resp B/P (MAP) Pulse Ox O2 Delivery O2 Flow Rate FiO2 07/30/19 06:00 99.6 108 20 104/68 (80) 91 Room Air I&O- Last 24 Hours up to 6 AM0 07/30/19 06:00 Intake Total 2310 ml Output Total 1180 ml Balance 1130 ml Laboratory Data 24H LABS Laboratory Tests 2 07/29/19 12:04: Immature Granulocyte % (Auto) 0.6, Neutrophils (%) (Auto) 92.7H, Lymphocytes (%) (Auto) 2.4L, Monocytes (%) (Auto) 4.1, Eosinophils (%) (Auto) 0.0, Basophils (%) (Auto) 0.2, Neutrophils # (Auto) 12.4H, Lymphocytes # (Auto) 0.3L, Monocytes # (Auto) 0.6, Eosinophils # (Auto) 0.0, Basophils # (Auto) 0.0, Nucleated Red Blood Cells % (auto) 0.0, Prothrombin Time 15.0H, Prothromb Time International Ratio 1.21, Activated Partial Thromboplast Time 25.5, Total Bilirubin 1.0, Direct Bilirubin 0.3H, Aspartate Amino Transf (AST/SGOT) 16, Alanine Aminotransferase (ALT/SGPT) 20, Alkaline Phosphatase 78, Total Creatine Kinase 44, Creatine Kinase MB 1.3, Creatine Kinase MB Relative Index 2.95, Troponin I < 0.02, Total Protein 7.9, Albumin 3.7, Albumin/Globulin Ratio 0.88L, Lipase 146 07/29/19 12:34: Lactic Acid Level 2.7*H 07/29/19 12:57: POC Glucose (Misc Panel) 164H, POC Sodium (Misc Panel) 143, POC Potassium (Misc Panel) 3.6, POC Chloride (Misc Panel) 99, POC Total CO2 (Misc Panel) 32.0H, POC Blood Urea Nitrogen (Misc Panel 37H, POC Ionized Calcium (Misc Panel) 4.7, POC Creatinine (Misc Panel) 1.3, POC Hematocrit (Misc Panel) 54.0H 07/29/19 17:17: Lactic Acid Followup at 4 Hours 2.9*H 07/30/19 05:26: Nucleated Red Blood Cells % (auto) 0.0, Anion Gap 6L, Glomerular Filtration Rate 26.2L, Estimated Mean Plasma Glucose 131H, Hemoglobin A1c 6.2, Lactic Acid Level 1.8, Calcium Level 9.1, Total Bilirubin 1.0, Aspartate Amino Transf (AST/SGOT) 10, Alanine Aminotransferase (ALT/SGPT) 18, Alkaline Phosphatase 59, Total Protein 7.2, Albumin 2.7#L, Albumin/Globulin Ratio 0.60L CBC/BMP Laboratory Tests 07/29/19 12:04 07/30/19 05:26 Microbiology Microbiology 07/29/19 Blood Culture, Received Pending 07/29/19 Blood Culture, Received Pending SUSAN HAYS MD Jul 30, 2019 09:59
[2019-07-30] MEDS ORDERED: GLUCOSE 4 GM CHEW TABLET PO PRN ×2 (10:00→20:00)
[2019-07-30] MEDS ORDERED: DEXTROSE 50% 50 ML SYRINGE IV PRN ×2 (10:00→20:00)
[2019-07-30] MEDS ORDERED: GLUCAGON FOR INJ 1 MG VIAL (J1610) SC PRN ×2 (10:00→20:00)
[2019-07-30] MEDS: HumaLOG INSULIN (NovoLOG) PER UNIT SC SCH ×2 (11:54→17:16)
[2019-07-30 14:30] VITALS: BP 106/67
--- NOTE | 2019-07-30 14:39 | ECGEPIP ---
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
[2019-07-30] MEDS: ONDANSETRON 4MG/2ML VIAL (J2405) IV PRN ×2 (15:30→22:00)
[2019-07-30] MEDS ORDERED: PROMETHAZINE INJ 25 MG/ML VIAL (J2550) IV PRN (15:30)
[2019-07-30] MEDS ORDERED: HumaLOG INSULIN (NovoLOG) PER UNIT SC SCH ×2 (20:00→21:00)
[2019-07-30 22:00] VITALS: BP 110/66
[2019-07-31] VITALS (10 sets, daily range): BP systolic 73–116; BP diastolic 42–81
[2019-07-31] MEDS ORDERED: HumaLOG INSULIN (NovoLOG) PER UNIT SC SCH
[2019-07-31] MEDS ORDERED: NOREPINEPHRINE 4 MG/4 ML AMP As Ordered ONE ×2 (00:31→00:33)
[2019-07-31] MEDS ORDERED: SUCCINYLCHOLINE INJ 200 MG/10 ML VIAL (J0330) As Ordered ONE (00:31)
[2019-07-31 00:53] LABS: ABG BASE EXCESS -4.2 (-2.0-2.0); ABG HCO3 23.6 MEQ/L (22.0-26.0); ABG O2 SATURATION 98.3 % (95.0-99.0); ABG PARTIAL PRESSURE CO2 53.6 mmHg (35.0-45.0); ABG PARTIAL PRESSURE O2 131.7 mmHg (75.0-100.0); ABG STANDARD HCO3 21.1 MEQ/L (22.0-26.0); ABG TOTAL CO2 25.3 MEQ/L (23.0-31.0); ABG pH (ARTERIAL) 7.262 UNITS (7.350-7.450)
[2019-07-31] MEDS ORDERED: MEROPENEM INJ 2 GM in NS 100 ML IV SCH ×2 (01:00→04:00)
[2019-07-31] MEDS ORDERED: VANCOMYCIN HCL 1,000 MG, VIAL MATE ADAPTER 1 EACH in D5W 250 ML IV SCH (01:00)
--- NOTE | 2019-07-31 01:02 | REPVR ---
PROCEDURE INFORMATION: Exam: XR Chest, 1 View Exam date and time: 07/31/2019 12:52 AM Age: 84 years old Clinical indication: Other: Pea arrest TECHNIQUE: Imaging protocol: XR of the chest Views: 1 view. COMPARISON: No relevant prior studies available. FINDINGS: Tubes, catheters and devices: Endotracheal tube lies 5 cm above the rossi. NG tube appears to extend into the stomach. Lungs: Degree of lung inflation is normal. No evidence of pulmonary edema. Ill-defined right perihilar airspace opacity. Pleural space: No pleural effusion or pneumothorax. Heart/Mediastinum: Cardiac silhouette appears normal. No adenopathy or hilar mass. Bones/joints: Osseous structures show no concerning abnormality. IMPRESSION: 1. Right perihilar airspace opacity which could represent pneumonia. No underlying active pulmonary edema. 2. Supportive devices are appropriately positioned. Electronically signed by: Carl Lou On 07/31/2019 01:02:10 AM
[2019-07-31] MEDS ORDERED: fentaNYL 100 MCG/2 ML INJECTION (J3010) As Ordered ONE (01:10)
[2019-07-31] MEDS ORDERED: VASOPRESSIN INJ 20 UNITS/ML VIAL As Ordered ONE (01:19)
[2019-07-31 01:29] LABS: INR 1.84
[2019-07-31] MEDS ORDERED: MIDAZOLAM INJ 2 MG/2 ML VIAL (J2250) IV PRN (01:30)
[2019-07-31] MEDS ORDERED: fentaNYL 100 MCG/2 ML INJECTION (J3010) IV ONE (01:30)
[2019-07-31] MEDS ORDERED: VASOPRESSIN INJ 20 UNITS in NS 499 ML IV SCH (01:30)
[2019-07-31] MEDS ORDERED: SODIUM BICARBONATE 8.4% INJ 50 ML SYRINGE As Ordered ONE (01:34)
[2019-07-31] MEDS ORDERED: SODIUM BICARBONATE 8.4% INJ 50 ML SYRINGE IV STA (01:37)
[2019-07-31 01:40] LABS: HEMATOCRIT 47.6 % (42.0-52.0); HEMOGLOBIN 14.9 g/dl (13.5-17.5); MEAN CORPUSCULAR HEMOGLOBIN 28.5 pg (27.0-33.0); MEAN CORPUSCULAR HGB CONC 31.3 g/dl (32.0-36.5); PLATELET COUNT, AUTOMATED 177 10^3/uL (150-450); RED BLOOD COUNT 5.23 10^6/uL (4.30-6.10); WHITE BLOOD COUNT 12.1 10^3/uL (4.0-10.0)
[2019-07-31] MEDS ORDERED: VANCOMYCIN HCL 1,000 MG, VIAL MATE ADAPTER 1 EACH in D5W 250 ML IV ONE (01:45)
[2019-07-31] MEDS ORDERED: NS 1,000 ML IV ONE ×2 (01:45)
[2019-07-31 02:00] LABS: LYMPHOCYTES 2 % (16-44); METAMYELOCYTES 2 % (0-0); MONOCYTES 2 % (0-5); MYELOCYTES 1 % (0-0); NEUTROPHILS 91 % (28-66); PLATELET ESTIMATE NORMAL (NORMAL)
[2019-07-31] MEDS ORDERED: NOREPINEPHRINE BITARTRATE 16 MG in D5W 484 ML IV SCH (02:00)
[2019-07-31] MEDS ORDERED: fentaNYL CITRATE 1,000 MCG in NS 80 ML IV SCH (02:00)
[2019-07-31 02:01] LABS: PLATELET CLUMPS SMALL AMT
[2019-07-31 02:13] LABS: ALBUMIN 2.3 GM/DL (3.2-5.2); BILIRUBIN,TOTAL 0.7 MG/DL (0.2-1.0); CALCIUM LEVEL 8.2 MG/DL (8.8-10.2); CK-MB VALUE MASS 6.9 NG/ML (<3.6); CREATININE FOR GFR 4.62 MG/DL (0.70-1.30); GLOMERULAR FILTRATION RATE 12.9 (>35); MAGNESIUM LEVEL 3.7 MG/DL (1.8-2.4); MB/CK RELATIVE INDEX 2.89 (< OR =4); PHOSPHORUS LEVEL 9.2 MG/DL (2.5-4.9); POTASSIUM SERUM 3.5 MEQ/L (3.5-5.1); TOTAL PROTEIN 5.5 GM/DL (6.4-8.2); TROPONIN I 0.13 NG/ML (< 0.10)
--- NOTE | 2019-07-31 02:37 | IPNPDOC ---
Date Seen The patient was seen on 07/31/19. Progress Note MAX CART NOTE Subjective: Max Cart called on patient at 0011. Patient reported to be in asystole at the time. High quality CPR was performed. Patient remained in asystole arrest for duration of code. Patient had copious amounts of vomit. NG tube was placed on suction with ~2L of output. Anaesthesia was present and patient was intubated at bedside. Patient received a total of three rounds of epinephrine and 2 ampules of bicarbonate. ROSC was obtained after ~10 minutes and patient was transferred to the Intensive Care Unit. Pulmonary/Critical Care on-call physician Dr. Bonilla was contacted and arrived to evaluate patient in the ICU. Central venous catheter was placed and patient was maxed out on Norepinephrine and Vasopressin. Patient has remained off of sedation without much response. Consider likely anoxic brain injury given hypoxia > 5 min given copious vomiting. Assessment/Plan: Cardiac Arrest / Asystole 2/2 gastric distention and Septic shock -Patient found to have distended stomach with >2L output from NG tube -Likely Septic shock -EKG demonstrating ST depressions and Atrial Fibrillation -STAT Echocardiogram -Hyperdynamic LV and RV function. No pericardial effusion. Mild aortic valve sclerosis. Probably mild pulmonary hypertension. Grade 1 LV diastolic dysfunction. CVP 5-10 -CVP of 5-10 suggesting need for additional IV fluid resuscitation and supporting likelihood of septic shock -Patient remains on Levophed and Vaso -Patients present at bedside and wishes to continue supportive measures at this time. The patient is currently DO NOT RESUSCITATE - MOLST form updated to reflect this -Vancomycin and Meropenem have been initiated and renally dosed -STAT labs demonstrating elevated lactic acid. Worsening renal function and transaminitis -Mild elevation of Troponin; will continue to trend Prognosis: Overall very poor prognosis given that likely suffered an anoxic brain injury during his arrest. - Will continue supportive care currently. - Patient is currently DNR / Patient currently maxed out on pressor support with down trending BP VS, I&O, 24H, Fishbone Vital Signs/I&O Vital Signs Date Time Temp Pulse Resp B/P (MAP) Pulse Ox O2 Delivery O2 Flow Rate FiO2 07/31/19 01:53 134 16 92 70 07/30/19 22:00 98.9 110/66 (81) Room Air I&O- Last 24 Hours up to 6 AM 07/31/19 06:00 Intake Total 1100 ml Output Total 90 ml Balance 1010 ml Laboratory Data 24H LABS Laboratory Tests 2 07/30/19 05:26: Nucleated Red Blood Cells % (auto) 0.0, Anion Gap 6L, Glomerular Filtration Rate 26.2L, Estimated Mean Plasma Glucose 131H, Hemoglobin A1c 6.2, Lactic Acid Level 1.8, Calcium Level 9.1, Total Bilirubin 1.0, Aspartate Amino Transf (AST/SGOT) 10, Alanine Aminotransferase (ALT/SGPT) 18, Alkaline Phosphatase 59, Total Protein 7.2, Albumin 2.7#L, Albumin/Globulin Ratio 0.60L 07/30/19 11:42: Bedside Glucose (Misc Panel) 136H 07/30/19 16:34: Bedside Glucose (Misc Panel) 134H 07/31/19 00:45: Blood Gas Bicarbonate Standard 21.1L, Arterial Blood pH 7.262L, Arterial Blood Partial Pressure CO2 53.6H, Arterial Blood Partial Pressure O2 131.7H, Arterial Blood Total CO2 25.3, Arterial Blood HCO3 23.6, Arterial Blood Base Excess - 4.2L, Arterial Blood Oxygen Saturation 98.3 07/31/19 01:04: Prothrombin Time 21.0H, Prothromb Time International Ratio 1.84, Lactic Acid Level 8.9*H 07/31/19 01:25: Neutrophils (%) (Auto) , Nucleated Red Blood Cells % (auto) 0.0, Neutrophils 91H, Band Neutrophils 2, Lymphocytes (Manual) 2L, Monocytes (Manual) 2, Metamyelocytes 2H, Myelocytes 1H, Platelet Estimate NORMAL, Clumped Platelets SMALL AMT, Anion Gap 18H, Glomerular Filtration Rate 12.9L, Calcium Level 8.2L, Phosphorus Level 9.2H, Magnesium Level 3.7H, Total Bilirubin 0.7, Aspartate Amino Transf (AST/SGOT) 274H, Alanine Aminotransferase (ALT/SGPT) 201H, Alkaline Phosphatase 57, Total Creatine Kinase 239#, Creatine Kinase MB 6.9H, Creatine Kinase MB Relative Index 2.89, Troponin I 0.13#H, Total Protein 5.5#L, Albumin 2.3L, Albumin/Globulin Ratio 0.72L 07/31/19 01:40: Bedside Glucose (Misc Panel) 109 CBC/BMP Laboratory Tests 07/30/19 05:26 07/31/19 01:25 Microbiology Microbiology 07/31/19 Blood Culture, Received Pending 07/31/19 Blood Culture, Received Pending 07/29/19 Blood Culture - Preliminary, Resulted No growth after 24 hours . All specim... 07/29/19 Blood Culture - Preliminary, Resulted No growth after 24 hours . All specim... GME ATTESTATION GME ATTESTATION My faculty preceptor for this patient encounter was physically present during the encounter and was fully available. All aspects of the patient interview, examination, medical decision making process, and medical care plan development were reviewed and approved by the faculty preceptor. The faculty preceptor is aware and concurs with the plan as stated in the body of this note and will attest to such by his/her cosignature. ATTENDING NOTE I, Kaitlyn Gutierrez, have independently examined this patient and performed my own physical exam, as well as reviewed the documentation and edited where necessary. I have discussed in detail with the resident / student the findings and plan of treatment as documented by the resident / student and edited their note. I agree with their findings and treatment plan and have edited their documentation. I will continue to follow the patient during this hospital stay. ISAIAH ALLEN DO Jul 31, 2019 02:37 KAITLYN GUTIERREZ MD Jul 31, 2019 02:47
[2019-07-31] MEDS ORDERED: EPINEPHrine 1MG/10ML SYRINGE 1.5IN ONE (02:39)
[2019-07-31] MEDS ORDERED: SODIUM BICARBONATE 8.4% INJ 50 ML SYRINGE ONE (02:39)
[2019-07-31 03:00] LABS: ABG HCO3 26.1 MEQ/L (22.0-26.0); ABG TOTAL CO2 27.9 MEQ/L (23.0-31.0)
[2019-07-31] MEDS ORDERED: SODIUM BICARBONATE 150 MEQ in STERILE WATER LITER BAG 1,000 ML IV SCH (03:00)
[2019-07-31 03:02] LABS: ABG BASE EXCESS -2.5 (-2.0-2.0); ABG PARTIAL PRESSURE O2 61.5 mmHg (75.0-100.0); ABG STANDARD HCO3 22.2 MEQ/L (22.0-26.0); ABG pH (ARTERIAL) 7.256 UNITS (7.350-7.450)
[2019-07-31] MEDS ORDERED: VANCOMYCIN INTERMITTENT/PULSE DOSING BY CLINICAL PHARMACIST PER DOSING PROTOCOL XX SCH (05:00)
[2019-07-31] MEDS ORDERED: LORazepam 2 MG/ML VIAL (J2060) IV PRN ×2 (05:45→06:15)
[2019-07-31] MEDS ORDERED: SCOPOLAMINE 1MG TRANSDERMAL PATCH TOP PRN (06:15)
[2019-07-31] MEDS ORDERED: MORPHINE 2 MG/ML 1ML VIAL (J2270) IV PRN (06:15)
--- NOTE | 2019-07-31 06:21 | ECHO ---
DATE OF STUDY: 07/31/2019 REFERRING PHYSICIAN: Ariel Haynes DO INDICATION: Cardiac arrest (status post). HEIGHT: 187 cm WEIGHT: 113 kg 2D MEASUREMENTS: Left atrium: 3.6 cm Ventricular septum: 1.07 cm Posterior wall: 1.06 cm Left ventricle diastole: 4.2 cm Inferior vena cava: 2.0 cm (more than 50% respiratory variation) DOPPLER MEASUREMENTS: Aortic valve velocity: 182 cm/s LVOT velocity: 126 cm/s No aortic regurgitation. No aortic stenosis. No mitral regurgitation. No mitral stenosis. Mitral E velocity: 46.9 cm/s Mitral A velocity: 66.5 cm/s Mitral deceleration time: 195 ms Trace tricuspid regurgitation. No pulmonic regurgitation. Pulmonary artery acceleration time: 87 ms MITRAL ANNULAR TISSUE DOPPLER: E prime septal: 4.4 cm/s E prime lateral: 4. 7 cm/s DESCRIPTION: Rhythm was sinus tachycardia. This was a technically difficult echocardiogram. This was a 2D, M-mode, color flow Doppler, and pulse wave Doppler examination, including mitral annular tissue Doppler. CONCLUSIONS: 1. Hyperdynamic left ventricle (LV) systolic function. Normal left ventricle internal dimensions and wall thickness. Grade 1 LV diastolic dysfunction. 2. Normal right ventricle size with hyperdynamic right ventricle (RV) systolic function. 3. Probably mild elevation of pulmonary artery systolic pressure. 4. Mild aortic valve sclerosis. No aortic stenosis or regurgitation. 5. Central venous pressure estimated to be 5-10 mmHg. 6. Technically difficult echocardiogram.
--- NOTE | 2019-07-31 06:23 | IPNPDOC ---
Text Note Date of Service The patient was seen on 07/31/19. NOTE Interval Update: Was called by nursing 5:15 AM to be informed about seizure-like activity that had occurred. Patient was given a dose of Versed and had resolution of his brief intermittent episodes of tonic-clonic like activity. I have come down to discuss with the the likelihood of seizures given the possibility of anoxic brain injury. At this point, I have suggested that we should consider imaging to verify if there is any evidence of intracranial swel ling. Patient has reached out to her son and daughter. After discussion family has decided to proceed with comfort measures. Imaging will be deferred. Nonessential medications will be discontinued. And medications for pain control, anxiety relief, and secretions will be instituted alone. Deborah Hollins () is present at the bedside and has decided to proceed with terminal extubation, which will occur after patient is medicated. MOLST form has been updated to reflect the change in status. VS,Fishbone, I+O VS, Fishbone, I+O Laboratory Tests 07/31/19 01:25 Vital Signs Date Time Temp Pulse Resp B/P (MAP) Pulse Ox O2 Delivery O2 Flow Rate FiO2 07/31/19 03:23 85/61 07/31/19 01:53 134 16 92 70 07/30/19 22:00 98.9 Room Air I&O- Last 24 Hours up to 6 AM 07/31/19 06:00 Intake Total 1100 ml Output Total 90 ml Balance 1010 ml JAXSON GUTIERREZ MD Jul 31, 2019 06:23
--- NOTE | 2019-07-31 06:33 | RO ---
DATE OF PROCEDURE: 07/31/2019 INDICATION: Administration of vasopressors. PREPROCEDURE DIAGNOSIS: Shock. POSTPROCEDURE DIAGNOSIS: Shock. PROCEDURE: Central line procedure. ATTENDING PHYSICIAN: Dr. Bonilla CONSENT: The procedure was performed emergently, and the permission was implied due to the emergent nature. PROCEDURE SUMMARY: Central line insertion practice form was completed by independent observer. Time-out was performed. Full sterile technique was maintained throughout procedure, including surgical cap, mask with protective eyewear, full gown, and sterile gloves. The patient was placed in Trendelenburg position. The right neck region was prepped using chlorhexidine scrub and draped in sterile fashion using a full drape, and a sterile probe cover was employed. The right internal jugular vein was identified using the ultrasound. Usual real-time [id number] guidance, the introducer needle was inserted into the internal jugular vein under direct ultrasound visualization. Venous blood was drawn. The syringe was removed, and a guidewire was advanced into the introducer needle. The introducer needle was then removed over the guidewire, and a small incision was made at the skin surface with a scalpel and a dilator was exchanged over the guidewire. After appropriate dilation was obtained, the dilator was changed over wire for a triple-lumen central venous catheter. The wire was removed, and the catheter was sutured in place at 18 cm. A sterile chlorhexidine-impregnated dressing was placed over the catheter at the insertion site. The patient tolerated procedure without any hemodynamic compromise. At time of procedure completion, all ports aspirated and flushed properly. Postprocedure chest x-ray showed the triple-lumen in place with the tip in the superior vena cava (SVC) and no pneumothorax. Estimated blood loss was less than 2 mL. MTDD
--- NOTE | 2019-07-31 07:23 | CR ---
DATE OF CONSULTATION: 07/31/2019 HISTORY OF PRESENT ILLNESS: Mr. Hollins is an 84-year-old male with a history of colorectal cancer status post colostomy, radiation (RT) and chemotherapy, and history of hypertension who presented with complaints of epigastric pain, nausea and vomiting for 5 days as well as with decreased appetite. The patient was found to have a small bowel ileus versus obstruction with possible acute enteritis of the small bowel. He was given antibiotics with ciprofloxacin and Flagyl as well as an nasogastric (NG) tube which was placed for decompression and surgery was consulted. The patient was also given IV fluid hydration. The patient earlier in the day had a small bowel follow through performed to followup his potential obstruction. His NG tube was clamped post follow through. He overnight was noted to have episode of vomiting and then became unresponsive. A rapid response was called where the patient was noted to have copious vomiting. The patient was in a pulseless electrical activity (PEA) arrest and he had cardiopulmonary resuscitation (CPR) performed with a few rounds of epi as well as bicarb administration. The patient was intubated by anesthesia and he would and return of spontaneous circulation (ROSC) was achieved. The patient was transferred to the intensive care unit (ICU) for further management. Post intubation, he was noted to be hypotensive and required administration of vasopressors for blood pressure support. PAST MEDICAL AND SURGICAL HISTORY: 1. Colorectal carcinoma status post colostomy. 2. Hypertension. HOME MEDICATIONS: - losartan - Centrum ALLERGIES: No known drug allergies. SOCIAL HISTORY: Denies history of smoking or alcohol use. REVIEW OF SYSTEMS: Unable to be obtained as patient is intubated. PHYSICAL EXAMINATION: Temperature 98.9, pulse is 130, respirations 33, blood pressure 80s over 50s, O2 sat 94% on 70% FIO2. Ins 1.7 and out 1 liter, although he had another additional liter output which was not recorded yet during his code. General: The patient is intubated. He is not sedated. He is not following commands and is not responsive to painful stimuli. HEENT: Normocephalic, atraumatic. Pupils are small, but reactive. Mucous membranes are moist. Neck is supple. Trachea is midline. There is no palpable cervical adenopathy. Cardiovascular: Tachycardic, somewhat irregular. Unable to appreciate any murmurs. There is evidence of some concavity with respirations due to broken ribs during CPR. Pulmonary: Coarse ventilated breath sounds bilaterally with no significant wheezing or rhonchi. Abdomen is obese, soft, mildly distended. There is a colostomy bag in place with no output. There is an NG tube in place draining thick bilious gastric contents. Lower Extremities: There is no pitting edema in the bilateral lower extremities. LABORATORY DATA: WBC 12.1, hemoglobin 14.9, platelets 177. Chemistry: Sodium is 142, potassium 3.5, chloride is 98, bicarb 26, BUN is 75, creatinine is 4.62, anion gap is 18, glucose is 157, lactic acid 8.9, phosphorus 9.2, magnesium 3.7, AST and ALT increased to 274 and 201, troponin increased to 0.13, albumin is 2.3. INR is 1.84 and PT is 21. ABG: pH is 7.262, pCO2 of 53.6, pO2 of 131.7. IMAGING STUDIES: CT abdomen and pelvis 07/29/2019 showed pancreatic fatty infiltration and a left renal cyst. The small bowel loops are fluid filled suggesting ileus as well as a possible acute enteritis with thickened hauser and enhancement noted. Chest x-ray post intubation showed the endotracheal (ET) tube in position. There is a new right perihilar opacity noted and some increasing opacity in the left base as well. There is an orogastric (OG) tube coursing below the diaphragm. ASSESSMENT AND PLAN: Mr. Hollins is an 84-year-old male with history of colorectal cancer status post colostomy who had presented with complaints of abdominal pain, nausea and vomiting as well as decreased appetite for the past 5 days prior to admission. The patient was found to have evidence of possible ileus versus small bowel obstruction along with potential small bowel enteritis. He was treated with antibiotics and had a NG tube placed and was seen by surgery for evaluation. The patient had his NG tube clamped earlier today for his small bowel follow through study. Overnight, he had episodes of vomiting and then became unresponsive and went into a PEA arrest. During the code, the patient was noted to have copious amounts of gastric contents which were obstructing his airway. The patient did have ROSC achieved and was intubated by anesthesia and placed on mechanical ventilation. He was transferred to the ICU for further management. The patient was noted to be hypotensive in the ICU requiring administration of vasopressors and placement of a central line. 1. PEA arrest secondary to hypoxemic respiratory failure likely due to aspiration. Post arrest, the patient is in shock, likely septic shock, although there is also a potential of demand ischemia and cardiogenic shock as well. Post arrest patient is unresponsive to voice or painful stimuli. Likely has some degree of anoxic brain injury. Patient is not a candidate for hypothermia protocol due to his significant hemodynamic instability requiring multiple pressors - Patient is on mechanical ventilator on volume control settings at 470/16/70/8. His ABG post intubation did show evidence of a metabolic and respiratory acidosis. Will repeat ABG in 1 hour and continue to adjust his vent settings as needed. - Will continue daily ABGs and chest x-rays while intubated as well as with vent bundle care with head of bed elevation and chlorhexidine mouthwash. - Will place the patient on a fentanyl drip for analgesia and Versed as needed for sedation. - The patient required Levophed as well as vasopressin for his shock. He had a right internal jugular (IJ) triple lumen placed for access and for administration of his vasopressors. - The patient was also noted to have lactic acidosis post arrest in the setting of his hypoperfusion and shock. He will be given 2 liters of fluid boluses and will be placed on maintenance fluids with bicarbonate infusion given his acidosis as well as with his worsening renal failure. Will followup repeat lactic acid. - The patient had an echocardiogram ordered given his shock and post arrest. Will followup results of echo. - Will continue to trend his troponins for his likely demand ischemia. 2. Small bowel obstruction versus ileus with possible enteritis - Will continue his OG tube to low wall intermittent suction. - Will broaden his antibiotics given concern for aspiration pneumonia with vancomycin and meropenem renally dosed. - Will followup with surgery recommendations. - Will start him on a proton pump inhibitor (PPI) for gastrointestinal (GI) prophylaxis while intubated. - Will continue to monitor electrolytes and replete as needed given his ileus. 3. Acute renal failure likely in the setting of shock. - Will to continue monitor his renal functions and renally dose medications as appropriate. He does have metabolic acidosis which is lactic acidosis as well as likely a component from his renal failure. - Will place a Mosley and continue to monitor his ins and outs. - Will change his maintenance fluids to bicarbonate infusions and will followup his acid base status and adjust accordingly. DEEP VEIN THROMBOSIS (DVT) PROPHYLAXIS: Thromboembolic deterrent stockings (TEDs) and sequential compression devices (SCDs). CODE STATUS: The patient's was updated about his cardiac arrest. Post arrest, the patient was also noted to be unresponsive without receiving any sedation. Discussed with the that he likely has a component of anoxic brain injury given his hypoxemic respiratory arrest. We also discussed that given his shock requiring multiple pressors that his prognosis is poor. She therefore wished for the patient to be made DO NOT RESUSCITATE (DNR) and while she would like to continue with pressors and antibiotics, she did also state that his comfort is the main concern for her and was considering palliative extubation. Code status - DNR and trial of intubation. Total critical care time spent, not including any procedures, approximately 1 hour and 40 minutes. MTDD
--- NOTE | 2019-07-31 08:00 | REP ---
Portable chest x-ray: Single view. History: Central line placement. Comparison chest x-ray: July 31, 2019. Findings: A right internal jugular central venous line is noted in place with its tip in the expected location of the superior vena cava. Endotracheal tube is seen in good position just above the transverse aorta. A nasogastric tube enters left upper quadrant. Increased interstitial markings are noted in the right inferior perihilar region and left lung base. The left lung base infiltrate is new. Lung hill are otherwise clear. Heart is not enlarged. The aorta is calcific and tortuous. Impression: Increased interstitial lung markings left base and right infrahilar region consistent with pneumonia. Electronically Signed by Tae Navas MD 07/31/2019 07:51 A
--- NOTE | 2019-07-31 08:34 | IPNPDOC ---
Text Note Date of Service The patient was seen on 07/31/19. NOTE Events overnight noted. I had a chance to speak with the . 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 Looks to be PEA/CR arrest following episodes of vomiting/?aspiration. I was trying to look for possible sites of obstruction given that he does not have any ostomy output and looking at the available images from the small bowel follow through, the contrast never went past the stomach. Unclear still what the nature of the obstruction was. VS,Fishbone, I+O VS, Fishbone, I+O Laboratory Tests 07/31/19 01:25 Vital Signs Date Time Temp Pulse Resp B/P (MAP) Pulse Ox O2 Delivery O2 Flow Rate FiO2 07/31/19 06:46 39 07/31/19 05:01 130 116/57 (76) 94 Ventilator 100 07/31/19 04:00 98.0 I&O- Last 24 Hours up to 6 AM 07/31/19 06:00 Intake Total 1100 ml Output Total 110 ml Balance 990 ml ROSA LEON MD Jul 31, 2019 08:34
[2019-07-31] MEDS ORDERED: PANTOPRAZOLE 40MG INJ (PROTONIX) (C9113) IV SCH (09:00)
[2019-07-31] MEDS ORDERED: CHLORHEXIDINE GLUCONATE 0.12 % 15ML UDC (PERIDEX ORAL RINSE) MT SCH (09:00)
--- NOTE | 2019-07-31 09:47 | DS.PDOC ---
Discharge Summary General Date of Admission Jul 29, 2019 at 15:46 Date of Discharge 07/31/19 Discharge Summary PROCEDURES PERFORMED DURING STAY: None. ADMITTING DIAGNOSES: 1. Abdominal pain, acute enteritis, SBO. DISCHARGE DIAGNOSES: 1. Abdominal pain, acute enteritis, SBO, hypertension cardiac arrest. COMPLICATIONS/CHIEF COMPLAINT: Abdominal Pain. HISTORY OF PRESENT ILLNESS: This is a 84 years old white male with past medical history of colorectal carcinoma, status post colostomy, also history of h ypertension, was in usual state of health since he started feeling pain in his epigastric area along with nausea and vomiting since 5 days and today when he went to see his provider. He felt some lumps and was unable to rule out blockage and incentive to ED for further workup. Patient also complaining of loss of appetite since last 4-5 days. Patient denies chest pain, shortness of breath, etc. . HOSPITAL COURSE: Patient was admitted with the diagnosis of abdominal pain. Patient was seen by Dr. Wadsworth from surgery, patient had IV fluids, placed and started on a NG-tube suctioning and kept nothing by mouth. Patient was also started on IV antibiotics, Cipro and Flagyl for possible enteritis. Patient again was followed up by surgery and GI follow through was ordered to establish the transition point. Overnight, patient had a large amount of vomiting followed by cardiac arrest and cardiac resuscitation was provided intubated and transferred to ICU. Patient's decided comfort care measures only and he was started only on comfort measures and peacefully this morning at 8 AM . DISCHARGE MEDICATIONS: Not applicable ALLERGIES: Please see below. PHYSICAL EXAMINATION ON DISCHARGE: Patient before he was examined this morning LABORATORY DATA: Please see below. IMAGING: Not applicable PROGNOSIS: ACTIVITY: . DIET: DISCHARGE PLAN: Patient discussed in detail with his at the bedside. She refused autopsy. DISPOSITION: . DISCHARGE INSTRUCTIONS: 1. . ITEMS TO FOLLOWUP ON ON OUTPATIENT: 1. . DISCHARGE CONDITION: . TIME SPENT ON DISCHARGE: 15 minutes. Vital Signs/I&Os Vital Signs Date Time Temp Pulse Resp B/P (MAP) Pulse Ox O2 Delivery O2 Flow Rate FiO2 07/31/19 06:46 39 07/31/19 05:01 130 116/57 (76) 94 Ventilator 100 07/31/19 04:00 98.0 I&O- Last 24 Hours up to 6 AM 07/31/19 06:00 Intake Total 1100 ml Output Total 110 ml Balance 990 ml Laboratory Data Labs 24H Laboratory Tests 2 07/30/19 11:42: Bedside Glucose (Misc Panel) 136H 07/30/19 16:34: Bedside Glucose (Misc Panel) 134H 07/31/19 00:45: Blood Gas Bicarbonate Standard 21.1L, Arterial Blood pH 7.262L, Arterial Blood Partial Pressure CO2 53.6H, Arterial Blood Partial Pressure O2 131.7H, Arterial Blood Total CO2 25.3, Arterial Blood HCO3 23.6, Arterial Blood Base Excess - 4.2L, Arterial Blood Oxygen Saturation 98.3 07/31/19 01:04: Prothrombin Time 21.0H, Prothromb Time International Ratio 1.84, Lactic Acid Level 8.9*H 07/31/19 01:25: Neutrophils (%) (Auto) , Nucleated Red Blood Cells % (auto) 0.0, Neutrophils 91H, Band Neutrophils 2, Lymphocytes (Manual) 2L, Monocytes (Manual) 2, Met amyelocytes 2H, Myelocytes 1H, Platelet Estimate NORMAL, Clumped Platelets SMALL AMT, Anion Gap 18H, Glomerular Filtration Rate 12.9L, Calcium Level 8.2L, Phosphorus Level 9.2H, Magnesium Level 3.7H, Total Bilirubin 0.7, Aspartate Amino Transf (AST/SGOT) 274H, Alanine Aminotransferase (ALT/SGPT) 201H, Alkaline Phosphatase 57, Total Creatine Kinase 239#, Creatine Kinase MB 6.9H, Creatine Kinase MB Relative Index 2.89, Troponin I 0.13#H, Total Protein 5.5#L, Albumin 2.3L, Albumin/Globulin Ratio 0.72L 07/31/19 01:40: Bedside Glucose (Misc Panel) 109 07/31/19 02:50: Blood Gas Bicarbonate Standard 22.2, Arterial Blood pH 7.256L, Arterial Blood Partial Pressure CO2 60.0H, Arterial Blood Partial Pressure O2 61.5L, Arterial Blood Total CO2 27.9, Arterial Blood HCO3 26.1H, Arterial Blood Base Excess - 2.5L, Arterial Blood Oxygen Saturation 87.0L CBC/BMP Laboratory Tests 07/31/19 01:25 FSBS Laboratory Tests Test 07/30/19 11:42 07/30/19 16:34 07/31/19 01:40 Range/Units Bedside Glucose (Misc Panel) 136 134 109 83-110 MG/DL Microbiology Microbiology 07/31/19 Blood Culture, Received Pending 07/31/19 Blood Culture, Received Pending 07/29/19 Blood Culture - Preliminary, Resulted No growth after 24 hours . All specim... 07/29/19 Blood Culture - Preliminary, Resulted No growth after 24 hours . All specim... Discharge Medications Scheduled Losartan Potassium (Losartan Potassium) 100 Mg Tablet, 100 MG PO DAILY, (Reported) Multivit-Mins/Iron/Folic/Lycop (Centrum Men's Tablet) 1 Each Tablet, 1 TAB PO DAILY, (Reported) Allergies Coded Allergies: No Known Allergies (Unverified , 07/29/19) SUSAN HAYS MD Jul 31, 2019 09:47
--- NOTE | 2019-07-31 15:14 | REP ---
Examination Requested: SBFT Reason For Exam: Bowel obstruction Small Bowel Follow Through The procedure was performed by MINDY Benavidez, under the direct supervision of Dr. Pascal. The images were reviewed with Dr. Pascal. 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 The NG tube was initially visualized in the proximal fundus of the stomach. The referring physician was called down to advance the NG tube further into the stomach. 200 ml of the 50/50 solution containing Isovue 300 and water was injected via the patient's NG tube. Several images taken spanning several hours demonstrate the contrast remaining in the gastric fundus. The study was discontinued and the patient was put on comfort measures before the study to be completed. Impression: 1. Nondiagnostic small-bowel follow-through. Reviewed by MINDY Crocker 07/31/2019 01:52 P Electronically Signed by Reji Pascal MD 07/31/2019 03:06 P
[2019-07-31] MEDS ORDERED: VANCOMYCIN HCL 750 MG, VIAL MATE ADAPTER 1 EACH in D5W 250 ML IV ONE (18:00)
[2019-08-01] MEDS ORDERED: VANCOMYCIN HCL 1,000 MG, VIAL MATE ADAPTER 1 EACH in D5W 250 ML IV SCH (01:00)
--- NOTE | 2019-08-01 06:51 | ECGEPIP ---
[facility] Test Date: 2019-07-31 Pat Name: SIENA MCNAIR Department: Room: [place] [address] Gender: Male [employer]: [employer] : 1935 Requested By: ISAIAH ALLEN Order Number: [id number] Reading MD: Venu Huerta Measurements Intervals Colby Rate: 139 P: MS: 0 QRS: -52 QRSD: 140 T: 15 QT: 337 QTc: 514 Interpretive Statements Rhythm appears to be atrial flutter with 2:1 atrial:ventricular response Indeterminate frontal axis Consider prior inferior wall NC, age indeterminate Right bundle branch block Compared to prior tracing of 07/30/2019, arrhythmia and right bundle branch block are new Electronically Signed on 08-01-2019 6:51:28 EDT by Venu Huerta
== END 2019-07-31 08:00 | disposition expired | DRG 388 ==
LOC: M ED 11:31 → M ED INP 15:46 → ENRESERVDT 16:29 → ENRESERVTM 16:29 → M MSPAV 17:05 → M ICU 07-31 00:32
PROVIDERS: ADMIT Internal Medicine; ATTEND Internal Medicine
PROC: 02HV33Z Insertion of Infusion Device into Superior Vena Cava, Percutaneous Approach (ICD-10-PCS; principal; 2019-07-31)
PROC: 5A1935Z Respiratory Ventilation, Less than 24 Consecutive Hours (ICD-10-PCS; 2019-07-31)
DX: K56.609 Unspecified intestinal obstruction, unspecified as to partial versus complete obstruction (principal); R65.21 Severe sepsis with septic shock; A41.9 Sepsis, unspecified organism; J96.91 Respiratory failure, unspecified with hypoxia; G93.1 Anoxic brain damage, not elsewhere classified; N17.9 Acute kidney failure, unspecified; E87.2 Acidosis; I46.9 Cardiac arrest, cause unspecified; K52.9 Noninfective gastroenteritis and colitis, unspecified; Z51.5 Encounter for palliative care; Z66 Do not resuscitate; K43.5 Parastomal hernia without obstruction or gangrene; I10 Essential (primary) hypertension; N28.1 Cyst of kidney, acquired; K76.0 Fatty (change of) liver, not elsewhere classified; Z79.899 Other long term (current) drug therapy; Z92.21 Personal history of antineoplastic chemotherapy; Z92.3 Personal history of irradiation; T17.908A Unspecified foreign body in respiratory tract, part unspecified causing other injury, initial encounter; Z85.038 Personal history of other malignant neoplasm of large intestine